=== PATIENT | female | born 1995 | race Caucasian/White ===

== ENCOUNTER 2019-12-13 01:06 | Emergency (ER) | payer BC ==
[~2019-12-13] VITALS: Ht 157.5 cm; Wt 95.3 kg
[2019-12-13 01:22] VITALS: BP 149/67
--- NOTE | 2019-12-13 01:27 | NUR ---
PT AMBULATED TO BED 11
--- NOTE | 2019-12-13 01:32 | NUR ---
ERMD AT BEDSIDE EVALUATING PT.
--- NOTE | 2019-12-13 02:11 | NUR ---
PT HAS A PAINFUL BUMP, POSSIBLE ABSCESS TO RIGHT GROIN AREA, X 3-4 WEEKS. STATES IT HAS GOTTEN BIGGER OVER LAST WEEK AND IS MORE PAINFUL. PAINFUL TO TOUCH AND CLOTHES RUBBING CAUSES A LOT OF DISCOMFORT. AREA IS RAISED AND REDDENED, PAINFUL TO TOUCH, SKIN INTACT, NO DISCHARGE OR DRAINAGE NOTED. PT AFEBRILE. RATES PAIN TO AREA 6/10. PT PLACED IN GOWN, BED IN LOWEST POSITION AND SIDERAIL UP X 1. NKA NO HX
--- NOTE | 2019-12-13 02:15 | NUR ---
[facility] SET UP AT BEDSIDE WITH EPI FOR MD JERALD CLAIRE
[2019-12-13] MEDS ORDERED: LIDOCAINE/EPI 1% 1:100000 20 ML VIAL INJ ONE ×2 (02:17→02:45)
[2019-12-13] MEDS ORDERED: BACITRACIN OINT 500 UNITS/GM PKT TP ONE ×2 (02:34→02:45)
--- NOTE | 2019-12-13 02:42 | NUR ---
BACITRACIN AND DRESSING APPLIED WITH STERILE TECHNIQUE TO AREA WHERE MD MARQUES DRAINED
[2019-12-13 02:57] VITALS: BP 151/71
--- NOTE | 2019-12-13 02:58 | NUR ---
Patient discharged with v/s stable. Written and verbal after care instructions given and explained. Patient alert, oriented and verbalized understanding of instructions. Ambulatory with steady gait. All questions addressed prior to discharge. ID band removed. Patient advised to follow up with PMD. Rx of BACTRIM DS AND NAPROSYN given. Patient educated on indication of medication including possible reaction and side effects. Opportunity to ask questions provided and answered.
== END 2019-12-13 02:53 | disposition home or self-care (01) ==
LOC: MED 01:06
DX: L02.214 Cutaneous abscess of groin (principal); Z98.890 Other specified postprocedural states
CPT/HCPCS: 10060; 99284; J2001